=== PATIENT | female | born 1970 | race Two or more races ===

== ENCOUNTER 2025-01-28 10:14 | Outpatient (RCR) | payer MEDICAID, SELFPAY ==
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
== END 2025-02-06 23:59 | disposition home or self-care (01) ==
LOC: CPTX 10:14
PROVIDERS: PCP Physician Assistant; Referring Provider Physician Assistant; Visit Provider Physician Assistant
DX: M54.9 Dorsalgia, unspecified (principal); M54.2 Cervicalgia; M62.830 Muscle spasm of back; I10 Essential (primary) hypertension
CPT/HCPCS: 97162

== ENCOUNTER 2025-03-04 16:00 | Outpatient (RCR) | payer MEDICAID, SELFPAY ==
--- NOTE | 2025-02-10 13:45 | PT.ODAYNRPT ---
PT Outpatient Daily Note OP Daily Note Outpatient Physical Therapy Treatment Date: 02/10/25 Visit Reasons: Neck/back pain Subjective: Pt c/o neck and back pain. Objective: Please see flow sheet for ther ex list. Assessment: Intervention completed with minimal pain and muscle fatigue. Plan: Assess response to treatment. Length of Time (minutes) of Treatment: 30 Minutes Procedure Charges Therapeutic Exercise 30 minutes: Yes
--- NOTE | 2025-02-13 16:11 | PT.ODAYNRPT ---
PT Outpatient Daily Note OP Daily Note Outpatient Physical Therapy Treatment Date: 02/13/25 Visit Reasons: Neck/back pain Subjective: Continued neck and back pain Objective: See F/S for therex MT: STM L/S with flexbar x7' Assessment: Mod/high TTP of lumbar paraspinals with MT Plan: Continue per POC Length of Time (minutes) of Treatment: 30 Minutes Procedure Charges Therapeutic Exercise 30 minutes: Yes
--- NOTE | 2025-02-17 15:00 | PT.ODAYNRPT ---
PT Outpatient Daily Note OP Daily Note Outpatient Physical Therapy Treatment Date: 02/17/25 Visit Reasons: Neck/back pain Subjective: Continued neck and back pain Objective: See F/S for therex MT: STM L/S with flexbar and C/S x7' Assessment: Mod/high TTP of lumbar and cervical paraspinals with MT Plan: Continue per POC Length of Time (minutes) of Treatment: 30 Minutes Procedure Charges Therapeutic Exercise 30 minutes: Yes
--- NOTE | 2025-02-19 17:21 | PT.ODAYNRPT ---
PT Outpatient Daily Note OP Daily Note Outpatient Physical Therapy Treatment Date: 02/19/25 Visit Reasons: Neck/back pain Subjective: Continued neck and back pain Objective: See F/S for therex MT: STM L/S with flexbar and C/S x7' Assessment: Mod/high TTP of lumbar and cervical paraspinals with MT Plan: Continue per POC Length of Time (minutes) of Treatment: 30 Minutes Procedure Charges Therapeutic Exercise 30 minutes: Yes
--- NOTE | 2025-02-25 17:20 | PT.ODAYNRPT ---
PT Outpatient Daily Note OP Daily Note Outpatient Physical Therapy Treatment Date: 02/25/25 Visit Reasons: Neck/back pain Subjective: Continued neck and back pain Objective: See F/S for therex MT: STM L/S with flexbar and C/S x7' Assessment: Mod TTP of lumbar and cervical paraspinals with MT Plan: Continue per POC Length of Time (minutes) of Treatment: 30 Minutes Procedure Charges Therapeutic Exercise 30 minutes: Yes
--- NOTE | 2025-02-28 16:23 | PT.ODAYNRPT ---
PT Outpatient Daily Note OP Daily Note Outpatient Physical Therapy Treatment Date: 02/25/25 Visit Reasons: Neck/back pain Subjective: Pt c/o neck pain. Objective: see f/s for ther ex list. Assessment: Pt demonstrates poor c/s rotation due to pain respone. Plan: Continue per POC Length of Time (minutes) of Treatment: 30 Minutes Procedure Charges Therapeutic Exercise 30 minutes: Yes
--- NOTE | 2025-03-04 17:52 | PT.ODAYNRPT ---
PT Outpatient Daily Note OP Daily Note Outpatient Physical Therapy Treatment Date: 03/04/25 Visit Reasons: Neck/back pain Subjective: Continued neck and back pain Objective: See F/S for therex MT: STM L/S with flexbar x7' Assessment: Mod TTP of lumbar paraspinals with MT. Pt has trunk extension sensitivity Plan: Continue per POC Length of Time (minutes) of Treatment: 30 Minutes Procedure Charges Therapeutic Exercise 30 minutes: Yes
== END 2025-03-09 23:59 | disposition home or self-care (01) ==
LOC: CPTX 16:00
PROVIDERS: PCP Physician Assistant; Referring Provider Physician Assistant; Visit Provider Physician Assistant
DX: M54.50 Low back pain, unspecified (principal); M54.2 Cervicalgia; M62.830 Muscle spasm of back
CPT/HCPCS: 97110

== ENCOUNTER 2025-03-06 10:14 | Emergency (ER) | payer MEDICAID, SELFPAY ==
[2025-03-06 10:15] VITALS: BMI 24.2
[2025-03-06] MEDS: DIPHTH,PERTUSS(ACELL),TET VAC 0.5 ML SYR- ADULT IMi (11:09)
[2025-03-06] MEDS: LIDOCAINE HCL 1% 20 ML VIAL INFL (11:10)
--- NOTE | 2025-03-06 12:03 | EDNOTE_ITS ---
Upper Extremity Injury RME/HPI General Chief Complaint: Hand/Wrist Problems Stated Complaint: LAC TO RIGHT PINKY FINGER WITH BROKEN GLASS Time Seen by Provider: 03/06/25 10:17 Arrival date/time: 03/06/25 10:14 54-year-old female presents to the emergency department complaint of laceration of right fifth digit patient reports she accidentally cut her finger with a piece of glass Limitations: no limitations Related Data Home Medications ?Medication ?Instructions ?Recorded ?Confirmed lisinopril 20 mg tablet 20 mg PO QDAY #0 tabs Previous Rx's ?Medication ?Instructions ?Recorded Hydrocodone/Homatropine SYRUP * 1 tsp PO Q6HR PRN COUG H ##60 04/04/15 (HYCODAN SYRUP *) ibuprofen 600 mg tablet 600 mg PO Q6HR #30 tabs 03/11 12/22 cephalexin 500 mg capsule 500 mg PO BID 7 days #14 cap s 03/06/25 ibuprofen 600 mg tablet 600 mg PO Q6H #30 tabs 03/06 Allergies Allergy/AdvReac Type Severity Reaction Status Date / Time No Known Allergies Allergy Unknown Uncoded 03/06/25 10:17 Review of Systems Review of Systems Systems Reviewed: All systems reviewed, normal except as documented Constitutional Constitutional: Reports system reviewed and no additional complaints, except as documented, Denies fever(s) and Denies headache(s) Eyes Eyes: Reports system reviewed and no additional complaints, except as documented and Denies blurry vision ENT Ears, Nose, Mouth, and Throat: Reports system reviewed and no additional complaints, except as documented, Denies headache(s), Denies nasal congestion and Denies nasal discharge Cardiovascular Cardiovascular: Reports system reviewed and no additional complaints, except as documented, Denies chest pain and Denies dyspnea Respiratory Respiratory: Reports system reviewed and no additional complaints, except as documented, Denies chest congestion, Denies cough and Denies dyspnea Gastrointestinal Gastrointestinal: Reports system reviewed and no additional complaints, except as documented and Denies abdominal pain Integumentary/Breasts Skin/Breast: Reports system reviewed and no additional complaints, except as documented, Denies rash and Reports wounds (Laceration right hand fifth digit) Neurologic Neurologic: Reports system reviewed and no additional complaints, except as documented, Reports as per HPI and Denies headache(s) Past Medical History Social History SMOKING STATUS: Never smoker ED Exam General Limitations: Present no limitations General appearance: Present alert and in no apparent distress Head Head exam: Present atraumatic, normocephalic and normal inspection Eye Eye exam: Present normal appearance, PERRL and EOMI; Absent conjunctival inj ection ENT ENT exam: Present normal exam, normal oropharynx and mucous membranes moist Neck Neck exam: Present normal inspection, full ROM and trachea midline Chest Chest inspection: Present normal inspection and symmetric chest wall rise Respiratory Respiratory exam: Present normal lung sounds bilaterally; Absent respiratory distress Cardiovascular Cardiovascular exam: Present regular rate, normal rhythm and normal heart sounds Abdominal Exam Abdominal exam: Present soft and normal bowel sounds; Absent distention, tenderness, guarding, rebound or rigidity Extremities Exam Extremities exam: Present normal inspection and full ROM Back Exam Back exam: Present normal inspection and full ROM Neurological Exam Neurological exam: Present alert, oriented X3, CN II-XII intact, normal gait and reflexes normal; Absent motor sensory deficit Psychiatric Psychiatric exam: Present normal affect and normal mood Skin Skin exam: Present warm, dry and other (Laceration right hand fifth digit) Course Quality Measures none Orders Category Date Time Status Set Up Suture Tray STAT Care 03/06/25 10:44 Completed Wound Care NOW Care 03/06/25 10:44 Completed Lidocaine 1% 20 ml [Xylocaine 1% 20 ML] Med 03/06/25 10:44 Discontinued 20 ml INFL X1 ONE TET,DIP/PERT AC (Adult)-Tdap [Boostrix Adult (Tdap) Med 03/06/25 10:44 Discontinued Vacc] 0.5 ml IMI .ONCE ONE Vital Signs Vital signs: O2 saturation 98% room air within normal limits PROCEDURES: Laceration Laceration 1: Site: hand Side (If applicable): right Size (cm): 4 Description: linear Depth: simple, single layer Local Anesthetic: lidocaine 1% Amount of anesthesia used (mL): 5 Pre-repair: wound explored Skin layer closed with: nylon Suture size (cm): 4-0 and 5-0 Number of sutures: 8 Technique: simple, interrupted Extremity Injury MDM Narrative MDM Narrative:: 54-year-old female presents to the emergency department complaint of laceration of right fifth digit patient reports she accidentally cut her finger with a piece of glass On exam patient laceration right hand fifth digit Wound irrigated copiously laceration repaired Patient has no evidence of tendon or ligamentous injury Patient discharged home in no distress to follow-up with primary care doctor in the next 24 to 48 hours and for any worsening symptoms to return to the ER immediately Patient data External records reviewed:: [facility] previous records Clinical information provided by:: patient Social determinants that could affect healthcare access:: none Patient has the following chronic illnesses:: see history How is presenting disease/condition affected by chronic disease/condition?: uneffected by Evaluation data The following diagnostics were reviewed and interpreted by me:: other (specify) Lab and/or radiology exams considered but not ordered:: Considered not ordered Interpretation Summary: N/A Medications / Prescriptions Medications or Prescriptions considered but not ordered:: Given Medication administrations:: Medication Administration History Discontinued Medications Diphtheria/Tetanus/Acell Pertussis (Diphth,Pertuss(Acell),Tet Vac 0.5 Ml Syr- Adult) 0.5 ml IMi .ONCE ONE Stop: 03/06/25 10:45 Last Admin: 03/06/25 11:09 Dose: 0.5 ml Documented By: Lidocaine HCl (Lidocaine Hcl 1% 20 Ml Vial) 20 ml INFL X1 ONE Stop: 03/06/25 10:45 Last Admin: 03/06/25 11:10 Dose: 20 ml Documented By: Given Consultations Consultation(s) initiated? (list below): No Diagnosis Upper Extremity Injury Differential Diagnosis: other (Laceration, abrasion, avulsion) Most likely diagnosis given after review of the tests above:: Laceration Admission Indicated Admission indicated?: not indicated Admission Request Was there a request for admission?: No Disposition Plan Disposition Plan: Discharge Discharge Attestation Discharge Attestation: The patient and all family members were given an opportunity to ask questions and understood the discharge instructions. Discharge instructions specifically effects, indications for sooner follow up or return to the emergency department, and the expected course of current diagnosis. Patient condition: Stable Discharge Plan Plan Patient Disposition: HOME (Self Care) Discharge Disposition comment: Stable Prescriptions/Referrals Prescriptions/Med Rec: New cephalexin 500 mg capsule 500 mg PO BID 7 Days Qty: 14 0RF ibuprofen 600 mg tablet 600 mg PO Q6H Qty: 30 0RF No Action lisinopril 20 MG tablet 20 mg PO QDAY Qty: 0 ibuprofen 600 MG tablet 600 mg PO Q6HR Qty: 30 0RF Hydrocodone/Homatropine SYRUP * (HYCODAN SYRUP *) 5 ML syrup 1 tsp PO Q6HR PRN (Reason: COUGH) Qty: 60 0RF Referrals: Louis Herbert PA-C [Primary Care Provider] - In 1 week Problem List Clinical Impression: Laceration of right little finger Patient/Caregiver Discharge Instructions Education Materials: ED Laceration: All Closures Additional Instructions: Please follow up with your primary care doctor in the next 24-48hrs for any worsening symptoms return here immediately Please have sutures removed in 10 to 14 days Print Language: Lao Stand Alone Forms: Missy Award Info., Work/School Release, Patient Portal Info Letter Vaccines Vaccines Given During Stay: TDaP PA/TECHNOLOGY METHODOLOGY CONSULTANT Supervising Physician PA/TECHNOLOGY METHODOLOGY CONSULTANT Supervising Physician: Dr. houston
== END 2025-03-06 12:40 | disposition home or self-care (01) ==
PROVIDERS: Emergency Provider Family Medicine; PCP Physician Assistant
DX: S61.216A Laceration without foreign body of right little finger without damage to nail, initial encounter (principal); W25.XXXA Contact with sharp glass, initial encounter; Z23 Encounter for immunization
CPT/HCPCS: 12002; 90471; 90715; 99284; J3490

== ENCOUNTER 2025-03-31 16:00 | Outpatient (RCR) | payer MEDICAID, SELFPAY ==
--- NOTE | 2025-03-12 11:04 | PT.ODAYNRPT ---
PT Outpatient Daily Note OP Daily Note Outpatient Physical Therapy Treatment Date: 03/12/25 Visit Reasons: neck back pain Subjective: No new complaints. Objective: Please see flow sheet for ther ex list. Assessment: Verbal cues and instruction to avoid cervical flexion with cervical retraction exercise, pt complied. Plan: Continue with POC. Length of Time (minutes) of Treatment: 30 Minutes Procedure Charges Therapeutic Exercise 30 minutes: Yes
--- NOTE | 2025-03-18 17:25 | PT.ODAYNRPT ---
PT Outpatient Daily Note OP Daily Note Outpatient Physical Therapy Treatment Date: 03/18/25 Visit Reasons: neck back pain Subjective: Continued neck and back pain Objective: See F/S for therex MT: STM L/S with flexbar x7' Assessment: Slow progress with therapy goals due to continued LBP and mod TTP of lumbar paraspinals with MT. Pt has trunk extension sensitivity. Plan: Continue per POC Length of Time (minutes) of Treatment: 30 Minutes Procedure Charges Therapeutic Exercise 30 minutes: Yes
--- NOTE | 2025-03-21 13:32 | PT.ODAYNRPT ---
PT Outpatient Daily Note OP Daily Note Outpatient Physical Therapy Treatment Date: 03/21/25 Visit Reasons: neck back pain Subjective: Pt reports no changes with LBP but feels neck is doing better. Objective: Please see flow sheet for ther ex list. Assessment: Verbal cues and demonstration to perform exercises with desired motion. Plan: Continue with poC. Length of Time (minutes) of Treatment: 30 Minutes Procedure Charges Therapeutic Exercise 30 minutes: Yes
--- NOTE | 2025-03-26 16:24 | PT.ODAYNRPT ---
PT Outpatient Daily Note OP Daily Note Outpatient Physical Therapy Treatment Date: 03/26/25 Visit Reasons: neck back pain Subjective: Pt reports she continues to have pain pointing to L SIJ region. Objective: Please see flow sheet for ther ex list. Assessment: Intervention progression for l/s slow due to pt pain response. Plan: Continue with pOC. Length of Time (minutes) of Treatment: 30 Minutes Procedure Charges Therapeutic Exercise 30 minutes: Yes
--- NOTE | 2025-03-31 17:25 | PT.ODS1RPT ---
PT OP Progress/Discharge Note Date of Service: 03/31/25 Progress Note/DC Note Progress Note/Discharge Note: Progress Note Patient Information Visit Reasons: neck back pain Service Continue Service or Discharge: Continue Service Status Subjective: Continued back pain with temporary relief after therapy visits. Less neck pain since starting therapy Objective: See F/S for therex MT: STM L/S with flexbar x7' C/S ArOM: Rotation: 80% L, 90% on R L/S TTP: moderate/high of paraspinals on L side L1-5 FB: 10 from floor with LBP Extenison: 20% with pain Assessment: Pt has attended 12/12 Rx sessions with slow progress with therapy goals due to continued LBP and mod TTP of lumbar paraspinals. Pt has trunk extension sensitivity. PT recommends further diagnostic imaging of L/S such as MRI. Plan: We will need provider's signature on this progress note and additional authorized visits to continue with therapy. Procedure Charges Therapeutic Exercise 30 minutes: Yes
== END 2025-04-08 23:59 | disposition home or self-care (01) ==
LOC: CPTX 16:00
PROVIDERS: PCP Physician Assistant; Referring Provider Physician Assistant; Visit Provider Physician Assistant
DX: M54.50 Low back pain, unspecified (principal); M54.2 Cervicalgia; M62.830 Muscle spasm of back; I10 Essential (primary) hypertension
CPT/HCPCS: 97110

== ENCOUNTER → 2025-06-09 | Outpatient (CLI) | payer MEDICAID, SELFPAY ==
--- NOTE | 2025-06-09 09:45 | XR_ITS ---
Examination: Screening digital mammography, bilateral Computer aided detection 3-D breast Tomosynthesis, bilateral Date and time of exam: June 09, 2025, 0950 hours, compared to mammograms dating to November 29, 2013 Indication: Screening Technique: Nonmagnified MLO, CC views of the breasts to been obtained, reconstructed from 3-D Tomosynthesis images. R2 computer aided detection program utilized for evaluation of suspicious masses and/or abnormal calcifications. 3-D Tomosynthesis images obtained. Findings: Scattered areas of fibroglandular density. Benign calcifications No interval suspicious mass Impression: BI-RADS category II: Benign Findings. Recommend 1 year follow-up mammogram.
== END | disposition home or self-care (01) ==
LOC: CDIM 09:39
PROVIDERS: Referring Provider Physician Assistant; Visit Provider Physician Assistant
DX: Z12.31 Encounter for screening mammogram for malignant neoplasm of breast (principal); R92.323 Mammographic fibroglandular density, bilateral breasts; R92.1 Mammographic calcification found on diagnostic imaging of breast
CPT/HCPCS: 77063; 77067